=== PATIENT | male | born 1975 | race Caucasian/White ===

== ENCOUNTER 2021-02-22 07:02 | Inpatient (IN) ==
[2021-02-22] MEDS ORDERED: 0.9 % Sodium Chloride 1,000 ML IVC ONE (07:22)
[2021-02-22 07:52] LABS: Hematocrit 30.1 % (37.5-50.1); Hemoglobin 9.5 g/dL (12.9-16.9); Mean Corpuscular HGB Conc 31.6 g/dL (31.6-35.5); Mean Corpuscular Hemoglobin 27.7 pg (28.0-33.3); Mean Corpuscular Volume 87.8 fL (83.0-100.0); Mean Platelet Volume 12.4 fL (9.4-12.4); Nucleated Red Blood Cells 1.2 /100 WBC (0); Platelet Count 121 K/mcL (140-400); Red Blood Count 3.43 M/mcL (4.19-5.50); Red Cell Distribution Width 17.6 % (11.5-14.5); White Blood Count 4.9 K/mcL (4.3-11.1)
[2021-02-22 08:13] LABS: Alanine Aminotransferase 8 Units/L (7-52); Albumin 3.2 g/dL (3.5-5.7); Albumin/Globulin Ratio 1.1 (1.1-2.2); Alkaline Phosphatase 147 Units/L (34-104); Aspartate Amino Transferase 19 Units/L (13-39); BUN/Creatinine Ratio 20 (6-26); Bilirubin,Direct 0.2 mg/dL (0.0-0.2); Bilirubin,Indirect 0.3 mg/dL (0.0-1.0); Bilirubin,Total 0.5 mg/dL (0.3-1.0); Blood Urea Nitrogen 21 mg/dL (6-20); Calcium 8.7 mg/dL (8.6-10.3); Carbon Dioxide 25 mEq/L (23-29); Chloride 103 mEq/L (98-107); Glucose 94 mg/dL (70-105); Lipase 14 Units/L (11-82); Magnesium 1.2 mg/dL (1.6-2.6); Osmolality,Calculated 285 (280-300); Phosphorous 1.8 mg/dL (2.7-4.5); Potassium 3.7 mEq/L (3.5-5.1); Sodium 136 mEq/L (136-145); Total Protein 6.2 g/dL (6.4-8.9); eGFR For African Americans > 60 (> 60); eGFR For Non-African Americans > 60 (> 60)
[2021-02-22 08:16] LABS: INR 1.2; Prothrombin Time 13.4 Seconds (9.4-12.1)
[2021-02-22] MEDS ORDERED: Magnesium Oxide 400 MG TABLET PO ONE (08:18)
[2021-02-22 08:19] LABS: Activated Partial Thrombo Time 25.4 Seconds (26.0-36.0)
[2021-02-22 08:21] LABS: Troponin I < 0.03 ng/mL (< 0.04)
[2021-02-22] MEDS ORDERED: Piperacillin/Tazobactam 3.375 GM in 0.9 % Sodium Chloride Mini Bag 100 ML IVPB ONE (09:45)
[2021-02-22 09:46] LABS: Lymphocytes # 0.9 K/mcL (0.6-4.6); Monocytes # 0.3 K/mcL (0.0-1.3); Neutrophils # 3.4 K/mcL (1.6-8.9); Toxic Granulation Present (Not Present); Toxic Vacuolation Present (Not Present)
[2021-02-22 09:47] LABS: Anisocytosis 1+ (Not Present); Platelet Estimate Slight Decrease (Normal)
[2021-02-22] MEDS ORDERED: Ringers Solution, Lactated 1,000 ML IVC ONE (10:05)
[2021-02-22] MEDS ORDERED: Ondansetron 4 MG/2 ML VIAL IVP PRN (10:23)
[2021-02-22] MEDS ORDERED: Naloxone 0.4 MG/ML INJ IVP PRN (10:23)
[2021-02-22] MEDS ORDERED: Acetaminophen 325 MG TABLET PO PRN (10:23)
[2021-02-22] MEDS ORDERED: Potassium Phosphate 44 MEQ in 0.9 % Sodium Chloride 250 ML IVPB ONE (10:25)
[2021-02-22 13:30] LABS: Bacteria,Urine Few per hpf (None-Few); Bilirubin,Urine Negative (Negative); Blood,Urine Negative (Negative); Clarity,Urine Turbid (Clear); Color,Urine Yellow (Yellow); Glucose,Urine (UA) Normal (Normal); Hyaline Casts,Urine Few per lpf (None Seen); Ketones,Urine Negative (Negative); Leukocyte Esterase,Urine Negative (Negative); Mucus,Urine Few per lpf (None-Few); Nitrite,Urine Negative (Negative); Protein,Urine Negative (Neg-Trace); RBC,Urine 0-3 per hpf (0-3); Specific Gravity,Urine 1.012 (1.010-1.025); Squamous Epithelial Cell,Urine Few per hpf (None-Few); Urobilinogen,Urine Normal (Normal)
[2021-02-22] MEDS ORDERED: *HR* OxyCODONE/APAP 7.5/325 TABLET PO PRN (14:09)
[2021-02-22] MEDS: Piperacillin/Tazobactam 3.375 GM in 0.9 % Sodium Chloride Mini Bag 100 ML IVPB SCH (16:26)
[2021-02-22 16:51] LABS: Acinetobacter baumannii by PCR Not Detected (Not Detect); Candida albicans by PCR Not Detected (Not Detect); Candida glabrata by PCR Not Detected (Not Detect); Candida krusei by PCR Not Detected (Not Detect); Candida parapsilosis by PCR Not Detected (Not Detect); Candida tropicalis by PCR Not Detected (Not Detect); Enterobacter cloacae Cmplx PCR Not Detected (Not Detect); Enterococcus by PCR Not Detected (Not Detect); Escherichia coli by PCR Not Detected (Not Detect); Klebsiella oxytoca by PCR Not Detected (Not Detect); Klebsiella pneumoniae by PCR DETECTED (Not Detect); Proteus by PCR Not Detected (Not Detect); Pseudomonas aeruginosa by PCR Not Detected (Not Detect); Serratia marcescens by PCR Not Detected (Not Detect); Staphylococcus aureus by PCR Not Detected (Not Detect); Staphylococcus by PCR Not Detected (Not Detect); Streptococcus agalactiae(B)PCR Not Detected (Not Detect); Streptococcus by PCR Not Detected (Not Detect); Streptococcus pneumoniae PCR Not Detected (Not Detect); Streptococcus pyogenes (A) PCR Not Detected (Not Detect)
[2021-02-22] MEDS ORDERED: Bisacodyl 10 MG RECTAL SUPPOSITORY RC PRN (17:37)
[2021-02-22] MEDS ORDERED: traZODone 50 MG TABLET PO PRN (17:37)
[2021-02-22] MEDS ORDERED: *HR* HYDROmorphone 4 MG TABLET PO PRN (17:37)
[2021-02-22] MEDS ORDERED: cefTRIAXone 1,000 MG in 0.9 % Sodium Chloride Mini Bag 100 ML IVPB SCH (17:39)
[2021-02-22] MEDS: Gabapentin 300 MG CAPSULE PO SCH (18:31)
[2021-02-22] MEDS: tiZANidine 4 MG TABLET PO SCH (18:31)
[2021-02-22] MEDS: Vancomycin 1,250 MG/262.5 ML IV.SOLN IVPB SCH ×2 (18:32→20:30)
[2021-02-22 19:54] LABS: Amphetamine Screen,Urine Negative ng/mL (Cutoff=1000); Barbiturate Screen,Urine Negative ng/mL (Cutoff=200); Benzodiazepines Screen,Urine Positive ng/mL (Cutoff=200); Cannabinoid Screen,Urine Negative ng/mL (Cutoff = 50); Cocaine Screen,Urine Negative ng/mL (Cutoff= 300); Opiate Screen,Urine Positive ng/mL (Cutoff=300); Phencyclidine Screen,Urine Negative ng/mL (Cutoff=25)
[2021-02-22] MEDS ORDERED: cefTRIAXone 1,000 MG in Water for inj. (sterile) 10 ML IVP SCH (20:00)
[2021-02-22] MEDS: Sennosides/Docusate Sodium TABLET PO SCH (20:21)
[2021-02-23] MEDS: Piperacillin/Tazobactam 3.375 GM in 0.9 % Sodium Chloride Mini Bag 100 ML IVPB SCH ×3 (00:10→15:56)
[2021-02-23] MEDS: tiZANidine 4 MG TABLET PO SCH ×5 (00:11→23:16)
[2021-02-23] MEDS: Gabapentin 300 MG CAPSULE PO SCH ×3 (02:51→17:28)
[2021-02-23 06:42] LABS: BUN/Creatinine Ratio 22 (6-26); Blood Urea Nitrogen 14 mg/dL (6-20); Calcium 8.6 mg/dL (8.6-10.3); Carbon Dioxide 28 mEq/L (23-29); Chloride 109 mEq/L (98-107); Glucose 109 mg/dL (70-105); Magnesium 1.9 mg/dL (1.6-2.6); Osmolality,Calculated 297 (280-300); Potassium 4.1 mEq/L (3.5-5.1); Sodium 143 mEq/L (136-145); eGFR For African Americans > 60 (> 60); eGFR For Non-African Americans > 60 (> 60)
[2021-02-23 06:55] LABS: Basophils % 0.4 %; Eosinophils # 0.1 K/mcL (0.0-0.6); Eosinophils % 1.5 %; Hematocrit 27.9 % (37.5-50.1); Hemoglobin 8.6 g/dL (12.9-16.9); Immature Granulocytes % 2.1 % (0-4); Lymphocytes # 1.4 K/mcL (0.6-4.6); Lymphocytes % 20.6 %; Mean Corpuscular HGB Conc 30.8 g/dL (31.6-35.5); Mean Corpuscular Hemoglobin 27.4 pg (28.0-33.3); Mean Corpuscular Volume 88.9 fL (83.0-100.0); Mean Platelet Volume 12.8 fL (9.4-12.4); Monocytes # 0.9 K/mcL (0.0-1.3); Monocytes % 13.1 %; Neutrophils # 4.2 K/mcL (1.6-8.9); Platelet Count 127 K/mcL (140-400); Red Blood Count 3.14 M/mcL (4.19-5.50); Segmented Neutrophils % 62.3 %; White Blood Count 6.8 K/mcL (4.3-11.1)
[2021-02-23 07:13] LABS: % Iron Saturation 11 % (20-55); Iron 35 mcg/dL (65-175); Transferrin 223 mg/dL (203-362)
[2021-02-23 07:28] LABS: Ferritin 125 ng/mL (20-250)
[2021-02-23 07:34] LABS: Folate 13.2 ng/mL (3.0-16.0)
[2021-02-23] MEDS: Vancomycin 1,250 MG/262.5 ML IV.SOLN IVPB SCH (08:17)
[2021-02-23] MEDS: Sennosides/Docusate Sodium TABLET PO SCH ×2 (08:18→21:43)
[2021-02-23] MEDS: Nicotine 21 MG PATCH.TD24 TD SCH (08:19)
[2021-02-23] MEDS: polyethylene glycoL 3350 17 GM POWD.PACK PO SCH (08:20)
[2021-02-23 16:02] LABS: Acinetobacter baumannii by PCR Not Detected (Not Detect); Candida albicans by PCR Not Detected (Not Detect); Candida glabrata by PCR Not Detected (Not Detect); Candida krusei by PCR Not Detected (Not Detect); Candida parapsilosis by PCR Not Detected (Not Detect); Candida tropicalis by PCR Not Detected (Not Detect); Enterobacter cloacae Cmplx PCR Not Detected (Not Detect); Enterobacteriaceae by PCR Not Detected (Not Detect); Enterococcus by PCR Not Detected (Not Detect); Escherichia coli by PCR Not Detected (Not Detect); Klebsiella oxytoca by PCR Not Detected (Not Detect); Klebsiella pneumoniae by PCR Not Detected (Not Detect); Proteus by PCR Not Detected (Not Detect); Pseudomonas aeruginosa by PCR Not Detected (Not Detect); Serratia marcescens by PCR Not Detected (Not Detect); Staphylococcus aureus by PCR Not Detected (Not Detect); Staphylococcus by PCR Not Detected (Not Detect); Streptococcus agalactiae(B)PCR Not Detected (Not Detect); Streptococcus by PCR Not Detected (Not Detect); Streptococcus pneumoniae PCR Not Detected (Not Detect); Streptococcus pyogenes (A) PCR Not Detected (Not Detect)
[2021-02-23] MEDS: *HR* HYDROmorphone 2 MG TABLET PO PRN ×2 (17:27→21:44)
[2021-02-23] MEDS: diazePAM 10 MG TABLET PO PRN (23:16)
[2021-02-24] MEDS: Gabapentin 300 MG CAPSULE PO SCH ×3 (02:09→16:49)
[2021-02-24] MEDS: *HR* HYDROmorphone 2 MG TABLET PO PRN ×5 (02:09→21:33)
[2021-02-24] MEDS: Piperacillin/Tazobactam 3.375 GM in 0.9 % Sodium Chloride Mini Bag 100 ML IVPB SCH ×3 (02:09→17:09)
[2021-02-24] MEDS: diazePAM 10 MG TABLET PO PRN ×3 (04:32→19:03)
[2021-02-24] MEDS: tiZANidine 4 MG TABLET PO SCH ×3 (04:32→16:50)
[2021-02-24 06:14] LABS: Hematocrit 29.8 % (37.5-50.1); Mean Corpuscular HGB Conc 30.2 g/dL (31.6-35.5); Mean Corpuscular Hemoglobin 26.8 pg (28.0-33.3); Mean Corpuscular Volume 88.7 fL (83.0-100.0); Mean Platelet Volume 11.9 fL (9.4-12.4); Platelet Count 199 K/mcL (140-400); Red Blood Count 3.36 M/mcL (4.19-5.50); Red Cell Distribution Width 18.4 % (11.5-14.5); White Blood Count 7.8 K/mcL (4.3-11.1)
[2021-02-24 06:38] LABS: BUN/Creatinine Ratio 15 (6-26); Blood Urea Nitrogen 11 mg/dL (6-20); Calcium 8.8 mg/dL (8.6-10.3); Carbon Dioxide 25 mEq/L (23-29); Chloride 109 mEq/L (98-107); Glucose 139 mg/dL (70-105); Magnesium 1.8 mg/dL (1.6-2.6); Osmolality,Calculated 294 (280-300); Potassium 4.2 mEq/L (3.5-5.1); Sodium 141 mEq/L (136-145); eGFR For African Americans > 60 (> 60); eGFR For Non-African Americans > 60 (> 60)
[2021-02-24] MEDS: Sennosides/Docusate Sodium TABLET PO SCH ×2 (09:11→21:33)
[2021-02-24] MEDS: polyethylene glycoL 3350 17 GM POWD.PACK PO SCH (09:12)
[2021-02-24] MEDS: Nicotine 21 MG PATCH.TD24 TD SCH (09:12)
[2021-02-24] MEDS: Ertapenem 1,000 MG in 0.9 % Sodium Chloride Mini Bag 100 ML IVPB SCH (17:09)
[2021-02-25] MEDS: Gabapentin 300 MG CAPSULE PO SCH ×3 (01:07→17:23)
[2021-02-25] MEDS: tiZANidine 4 MG TABLET PO SCH ×4 (01:07→17:23)
[2021-02-25] MEDS: diazePAM 10 MG TABLET PO PRN ×4 (01:07→19:27)
[2021-02-25] MEDS: *HR* HYDROmorphone 2 MG TABLET PO PRN ×5 (04:06→21:29)
[2021-02-25] MEDS: polyethylene glycoL 3350 17 GM POWD.PACK PO SCH (08:26)
[2021-02-25] MEDS: Ertapenem 1,000 MG in 0.9 % Sodium Chloride Mini Bag 100 ML IVPB SCH (08:32)
[2021-02-25] MEDS: Nicotine 21 MG PATCH.TD24 TD SCH (08:33)
[2021-02-25] MEDS: Sennosides/Docusate Sodium TABLET PO SCH ×2 (08:33→21:29)
[2021-02-25 11:50] LABS: Hematocrit 31.8 % (37.5-50.1); Hemoglobin 9.8 g/dL (12.9-16.9); Mean Corpuscular HGB Conc 30.8 g/dL (31.6-35.5); Mean Corpuscular Hemoglobin 27.4 pg (28.0-33.3); Mean Corpuscular Volume 88.8 fL (83.0-100.0); Mean Platelet Volume 11.7 fL (9.4-12.4); Platelet Count 225 K/mcL (140-400); Red Blood Count 3.58 M/mcL (4.19-5.50); White Blood Count 5.8 K/mcL (4.3-11.1)
[2021-02-25] MEDS ORDERED: *HR* Enoxaparin 40 MG/0.4 ML SYRINGE SQ ONE (12:08)
[2021-02-25 12:11] LABS: BUN/Creatinine Ratio 15 (6-26); Blood Urea Nitrogen 11 mg/dL (6-20); Calcium 8.9 mg/dL (8.6-10.3); Carbon Dioxide 26 mEq/L (23-29); Chloride 107 mEq/L (98-107); Glucose 83 mg/dL (70-105); Magnesium 1.9 mg/dL (1.6-2.6); Osmolality,Calculated 289 (280-300); Sodium 140 mEq/L (136-145); eGFR For African Americans > 60 (> 60); eGFR For Non-African Americans > 60 (> 60)
[2021-02-26] MEDS: *HR* HYDROmorphone 2 MG TABLET PO PRN ×5 (01:51→20:40)
[2021-02-26] MEDS: Gabapentin 300 MG CAPSULE PO SCH ×3 (01:51→17:39)
[2021-02-26] MEDS: tiZANidine 4 MG TABLET PO SCH ×4 (01:53→17:39)
[2021-02-26] MEDS: diazePAM 10 MG TABLET PO PRN ×3 (02:47→17:43)
[2021-02-26 04:27] LABS: Hematocrit 31.1 % (37.5-50.1); Hemoglobin 9.2 g/dL (12.9-16.9); Mean Corpuscular HGB Conc 29.6 g/dL (31.6-35.5); Mean Corpuscular Hemoglobin 27.2 pg (28.0-33.3); Mean Platelet Volume 11.5 fL (9.4-12.4); Platelet Count 251 K/mcL (140-400); Red Blood Count 3.38 M/mcL (4.19-5.50); Red Cell Distribution Width 17.8 % (11.5-14.5); White Blood Count 7.6 K/mcL (4.3-11.1)
[2021-02-26 04:47] LABS: BUN/Creatinine Ratio 27 (6-26); Blood Urea Nitrogen 21 mg/dL (6-20); Calcium 8.7 mg/dL (8.6-10.3); Carbon Dioxide 26 mEq/L (23-29); Chloride 106 mEq/L (98-107); Glucose 135 mg/dL (70-105); Magnesium 1.8 mg/dL (1.6-2.6); Osmolality,Calculated 289 (280-300); Sodium 137 mEq/L (136-145); eGFR For African Americans > 60 (> 60); eGFR For Non-African Americans > 60 (> 60)
[2021-02-26] MEDS: *HR* Enoxaparin 40 MG/0.4 ML SYRINGE SQ SCH (06:43)
[2021-02-26] MEDS: Ertapenem 1,000 MG in 0.9 % Sodium Chloride Mini Bag 100 ML IVPB SCH (08:51)
[2021-02-26] MEDS: Nicotine 21 MG PATCH.TD24 TD SCH (08:52)
[2021-02-26] MEDS: Sennosides/Docusate Sodium TABLET PO SCH ×2 (08:55→20:40)
[2021-02-26] MEDS: polyethylene glycoL 3350 17 GM POWD.PACK PO SCH (08:55)
[2021-02-27] MEDS: Gabapentin 300 MG CAPSULE PO SCH ×3 (00:57→16:43)
[2021-02-27] MEDS: tiZANidine 4 MG TABLET PO SCH ×5 (00:57→23:51)
[2021-02-27] MEDS: diazePAM 10 MG TABLET PO PRN ×4 (00:57→21:34)
[2021-02-27] MEDS: *HR* HYDROmorphone 2 MG TABLET PO PRN ×5 (02:06→20:44)
[2021-02-27] MEDS: *HR* Enoxaparin 40 MG/0.4 ML SYRINGE SQ SCH (05:09)
[2021-02-27] MEDS: Sennosides/Docusate Sodium TABLET PO SCH ×2 (08:36→20:44)
[2021-02-27] MEDS: Nicotine 21 MG PATCH.TD24 TD SCH (08:36)
[2021-02-27] MEDS: Ertapenem 1,000 MG in 0.9 % Sodium Chloride Mini Bag 100 ML IVPB SCH (08:37)
[2021-02-27] MEDS: polyethylene glycoL 3350 17 GM POWD.PACK PO SCH (08:37)
[2021-02-27] MEDS: Micafungin 100 MG in 0.9 % Sodium Chloride Mini Bag 100 ML IVPB SCH (14:50)
[2021-02-28] MEDS: *HR* HYDROmorphone 2 MG TABLET PO PRN ×6 (00:57→22:10)
[2021-02-28] MEDS: Gabapentin 300 MG CAPSULE PO SCH ×3 (00:57→17:35)
[2021-02-28 03:38] LABS: Hematocrit 34.6 % (37.5-50.1); Hemoglobin 10.7 g/dL (12.9-16.9); Mean Corpuscular HGB Conc 30.9 g/dL (31.6-35.5); Mean Corpuscular Hemoglobin 28.1 pg (28.0-33.3); Mean Corpuscular Volume 90.8 fL (83.0-100.0); Mean Platelet Volume 12.8 fL (9.4-12.4); Platelet Count 130 K/mcL (140-400); Red Blood Count 3.81 M/mcL (4.19-5.50); Red Cell Distribution Width 17.8 % (11.5-14.5)
[2021-02-28] MEDS: diazePAM 10 MG TABLET PO PRN ×4 (03:38→22:12)
[2021-02-28 03:57] LABS: BUN/Creatinine Ratio 35 (6-26); Blood Urea Nitrogen 23 mg/dL (6-20); Calcium 9.1 mg/dL (8.6-10.3); Carbon Dioxide 27 mEq/L (23-29); Chloride 103 mEq/L (98-107); Glucose 100 mg/dL (70-105); Osmolality,Calculated 282 (280-300); Potassium 4.3 mEq/L (3.5-5.1); Sodium 134 mEq/L (136-145); eGFR For African Americans > 60 (> 60); eGFR For Non-African Americans > 60 (> 60)
[2021-02-28] MEDS: *HR* Enoxaparin 40 MG/0.4 ML SYRINGE SQ SCH (05:49)
[2021-02-28] MEDS: tiZANidine 4 MG TABLET PO SCH ×3 (05:49→17:32)
[2021-02-28] MEDS: Sennosides/Docusate Sodium TABLET PO SCH ×2 (09:21→19:31)
[2021-02-28] MEDS: Nicotine 21 MG PATCH.TD24 TD SCH (09:22)
[2021-02-28] MEDS: polyethylene glycoL 3350 17 GM POWD.PACK PO SCH (09:22)
[2021-02-28] MEDS: Ertapenem 1,000 MG in 0.9 % Sodium Chloride Mini Bag 100 ML IVPB SCH (09:23)
[2021-02-28] MEDS: Micafungin 100 MG in 0.9 % Sodium Chloride Mini Bag 100 ML IVPB SCH (09:27)
[2021-02-28] MEDS: hydrOXYzine pamoate 25 MG CAPSULE PO PRN (20:23)
[2021-03-01] MEDS: tiZANidine 4 MG TABLET PO SCH ×4 (00:02→17:51)
[2021-03-01] MEDS: *HR* HYDROmorphone 2 MG TABLET PO PRN ×5 (02:18→19:49)
[2021-03-01] MEDS: Gabapentin 300 MG CAPSULE PO SCH ×3 (02:18→17:51)
[2021-03-01] MEDS: *HR* Enoxaparin 40 MG/0.4 ML SYRINGE SQ SCH (06:07)
[2021-03-01] MEDS: diazePAM 10 MG TABLET PO PRN ×3 (06:55→19:50)
[2021-03-01 07:52] LABS: Hematocrit 35.5 % (37.5-50.1); Mean Corpuscular Hemoglobin 27.4 pg (28.0-33.3); Mean Corpuscular Volume 88.5 fL (83.0-100.0); Mean Platelet Volume 11.8 fL (9.4-12.4); Platelet Count 219 K/mcL (140-400); Red Blood Count 4.01 M/mcL (4.19-5.50); Red Cell Distribution Width 17.8 % (11.5-14.5); White Blood Count 4.4 K/mcL (4.3-11.1)
[2021-03-01 08:09] LABS: BUN/Creatinine Ratio 33 (6-26); Blood Urea Nitrogen 23 mg/dL (6-20); Carbon Dioxide 25 mEq/L (23-29); Chloride 104 mEq/L (98-107); Glucose 97 mg/dL (70-105); Osmolality,Calculated 286 (280-300); Sodium 136 mEq/L (136-145); eGFR For African Americans > 60 (> 60); eGFR For Non-African Americans > 60 (> 60)
[2021-03-01] MEDS: hydrOXYzine pamoate 25 MG CAPSULE PO PRN (09:40)
[2021-03-01] MEDS: Sennosides/Docusate Sodium TABLET PO SCH ×2 (09:40→19:49)
[2021-03-01] MEDS: Nicotine 21 MG PATCH.TD24 TD SCH (09:40)
[2021-03-01] MEDS: Ertapenem 1,000 MG in 0.9 % Sodium Chloride Mini Bag 100 ML IVPB SCH (09:41)
[2021-03-01] MEDS: Micafungin 100 MG in 0.9 % Sodium Chloride Mini Bag 100 ML IVPB SCH (09:41)
[2021-03-01] MEDS: polyethylene glycoL 3350 17 GM POWD.PACK PO SCH (09:42)
[2021-03-01 11:31] LABS: Adenovirus Not Detected (Not Detect); Bordetella Pertussis Not Detected (Not Detect); Chlamydophila pneumoniae Not Detected (Not Detect); Coronavirus 229E Not Detected (Not Detect); Coronavirus HKU1 Not Detected (Not Detect); Coronavirus NL63 Not Detected (Not Detect); Coronavirus OC43 Not Detected (Not Detect); Human Metapneumovirus Not Detected (Not Detect); Human Rhinovirus/Enterovirus Not Detected (Not Detect); Influenza A Subtype 2009 H1 Not Detected (Not Detect); Influenza B Not Detected (Not Detect); Mycoplasma pneumoniae Not Detected (Not Detect); Parainfluenza Virus 1 Not Detected (Not Detect); Parainfluenza Virus 2 Not Detected (Not Detect); Parainfluenza Virus 3 Not Detected (Not Detect); Parainfluenza Virus 4 Not Detected (Not Detect); Respiratory Syncytial Virus Not Detected (Not Detect); SARS-CoV-2 Not Detected (Not Detect)
[2021-03-01 14:51] VITALS: TEMP 97.9
[2021-03-01 19:33] VITALS: BP 119/76; PULSE 90; O2SAT 99
== END 2021-03-01 20:25 | DRG 721 ==
LOC: SUATTDRO → EMEROOARM 07:02 → CDU 07:02 → SUATTDRO 10:35 → CDU 12:11 → SUATTDRO 02-23 17:21 → 3NENU 02-24 18:23
PROVIDERS: ADMIT Pharmacist; ATTEND Student in an Organized Health Care Education/Training Program

== ENCOUNTER 2021-03-15 14:25 | Inpatient (IN) ==
[2021-03-15] MEDS ORDERED: Isovue-370 500 ML BOTTLE IVP ONE ×2 (15:18→21:05)
[2021-03-15] MEDS ORDERED: 0.9 % Sodium Chloride 1,000 ML IVC ONE (15:55)
[2021-03-15 16:10] LABS: Basophils % 0.3 %; Eosinophils % 0.3 %; Hematocrit 40.1 % (37.5-50.1); Hemoglobin 13.1 g/dL (12.9-16.9); Immature Granulocytes % 0.4 % (0-4); Lymphocytes # 1.3 K/mcL (0.6-4.6); Lymphocytes % 14.6 %; Mean Corpuscular HGB Conc 32.7 g/dL (31.6-35.5); Mean Corpuscular Hemoglobin 28.4 pg (28.0-33.3); Mean Platelet Volume 10.9 fL (9.4-12.4); Monocytes # 1.1 K/mcL (0.0-1.3); Monocytes % 11.7 %; Neutrophils # 6.5 K/mcL (1.6-8.9); Platelet Count 211 K/mcL (140-400); Red Blood Count 4.61 M/mcL (4.19-5.50); Red Cell Distribution Width 16.7 % (11.5-14.5); Segmented Neutrophils % 72.7 %
[2021-03-15 16:33] LABS: BUN/Creatinine Ratio 20 (6-26); Blood Urea Nitrogen 16 mg/dL (6-20); Carbon Dioxide 31 mEq/L (23-29); Chloride 95 mEq/L (98-107); Glucose 114 mg/dL (70-105); Osmolality,Calculated 278 (280-300); Potassium 4.6 mEq/L (3.5-5.1); Sodium 133 mEq/L (136-145); eGFR For African Americans > 60 (> 60); eGFR For Non-African Americans > 60 (> 60)
[2021-03-15] MEDS ORDERED: *HR* FentaNYL (PF) 100 MCG/2 ML VIAL IVP ONE ×2 (19:00→22:16)
[2021-03-15 20:02] LABS: C-Reactive Protein > 300 mg/L (Less than 10)
[2021-03-15] MEDS ORDERED: 0.9 % Sodium Chloride 1,000 ML IV ONE (21:08)
[2021-03-15 21:44] LABS: INR 1.3; Prothrombin Time 14.8 Seconds (9.4-12.1)
[2021-03-15 21:47] LABS: Activated Partial Thrombo Time 28.5 Seconds (26.0-36.0)
[2021-03-15] MEDS ORDERED: Vancomycin 1,500 MG/265 ML IV.SOLN IVPB ONE (23:00)
[2021-03-16] MEDS ORDERED: *HR* HYDROcodone/Acet 5/325 mg TABLET PO PRN (00:53)
[2021-03-16] MEDS ORDERED: *HR* OxyCODONE Immed Rel 5 MG TABLET PO PRN (00:53)
[2021-03-16] MEDS ORDERED: Ondansetron ODT 4 MG TAB.RAPDIS SL PRN (00:53)
[2021-03-16] MEDS ORDERED: Naloxone 0.4 MG/ML INJ IVP PRN (00:53)
[2021-03-16] MEDS ORDERED: Ertapenem 1,000 MG in 0.9 % Sodium Chloride Mini Bag 100 ML IVPB SCH (01:55)
[2021-03-16] MEDS ORDERED: *HR* HYDROmorphone 2 MG TABLET PO PRN ×2 (01:58→02:00)
[2021-03-16] MEDS ORDERED: *HR* Heparin 5,000 UNIT/ML VIAL IVP PRN (02:40)
[2021-03-16] MEDS ORDERED: *HR* Heparin 5,000 UNIT/ML VIAL IVP ONE (02:40)
[2021-03-16] MEDS: *HR* OxyCODONE Immed Rel 5 MG TABLET PO PRN ×2 (03:26→13:14)
[2021-03-16] MEDS: Melatonin 3 MG TABLET PO PRN ×2 (03:28→22:48)
[2021-03-16] MEDS: Heparin 25,000UNIT/250ML 1/2NS 25,000 UNIT/250 ML IV.SOLN IVC SCH (05:09)
[2021-03-16 07:18] LABS: INR 1.3; Prothrombin Time 14.5 Seconds (9.4-12.1)
[2021-03-16 07:20] LABS: Heparin anti-factor XA UFH 0.04 IU/mL (0.30-0.70)
[2021-03-16] MEDS: *HR* HYDROmorphone 2 MG TABLET PO PRN ×3 (08:15→22:48)
[2021-03-16 10:20] LABS: Basophils % 0.2 %; Eosinophils % 0.5 %; Hematocrit 32.1 % (37.5-50.1); Immature Granulocytes % 0.7 % (0-4); Lymphocytes # 1.1 K/mcL (0.6-4.6); Mean Corpuscular HGB Conc 31.8 g/dL (31.6-35.5); Mean Corpuscular Hemoglobin 27.1 pg (28.0-33.3); Mean Corpuscular Volume 85.4 fL (83.0-100.0); Mean Platelet Volume 11.8 fL (9.4-12.4); Monocytes # 0.7 K/mcL (0.0-1.3); Monocytes % 8.6 %; Neutrophils # 6.6 K/mcL (1.6-8.9); Platelet Count 219 K/mcL (140-400); Red Blood Count 3.76 M/mcL (4.19-5.50); Red Cell Distribution Width 16.9 % (11.5-14.5); White Blood Count 8.6 K/mcL (4.3-11.1)
[2021-03-16 10:36] LABS: Hemoglobin 10.2 g/dL (12.9-16.9)
[2021-03-16 10:38] LABS: BUN/Creatinine Ratio 37 (6-26); Blood Urea Nitrogen 19 mg/dL (6-20); Calcium 8.2 mg/dL (8.6-10.3); Carbon Dioxide 25 mEq/L (23-29); Chloride 101 mEq/L (98-107); Glucose 111 mg/dL (70-105); Osmolality,Calculated 277 (280-300); Potassium 4.2 mEq/L (3.5-5.1); Sodium 132 mEq/L (136-145); eGFR For African Americans > 60 (> 60); eGFR For Non-African Americans > 60 (> 60)
[2021-03-16 12:47] LABS: Hematocrit 34.1 % (37.5-50.1); Hemoglobin 10.5 g/dL (12.9-16.9); Mean Corpuscular HGB Conc 30.8 g/dL (31.6-35.5); Mean Corpuscular Hemoglobin 27.2 pg (28.0-33.3); Mean Corpuscular Volume 88.3 fL (83.0-100.0); Mean Platelet Volume 11.6 fL (9.4-12.4); Platelet Count 222 K/mcL (140-400); Red Blood Count 3.86 M/mcL (4.19-5.50)
[2021-03-16] MEDS: Sennosides/Docusate Sodium TABLET PO SCH ×2 (14:44→22:47)
[2021-03-16] MEDS: *HR* Heparin 5,000 UNIT/ML VIAL IVP PRN (15:54)
[2021-03-16] MEDS: ceFAZolin 2,000 MG in 0.9 % Sodium Chloride 100 ML IVPB SCH ×2 (16:41→23:54)
[2021-03-16] MEDS: Nicotine 21 MG PATCH.TD24 TD SCH (17:43)
[2021-03-17 01:08] LABS: Hematocrit 28.6 % (37.5-50.1); Hemoglobin 9.2 g/dL (12.9-16.9); Mean Corpuscular HGB Conc 32.2 g/dL (31.6-35.5); Mean Corpuscular Hemoglobin 27.9 pg (28.0-33.3); Mean Corpuscular Volume 86.7 fL (83.0-100.0); Mean Platelet Volume 11.4 fL (9.4-12.4); Platelet Count 225 K/mcL (140-400); Red Cell Distribution Width 16.8 % (11.5-14.5); White Blood Count 8.2 K/mcL (4.3-11.1)
[2021-03-17 01:26] LABS: BUN/Creatinine Ratio 28 (6-26); Blood Urea Nitrogen 19 mg/dL (6-20); Calcium 8.1 mg/dL (8.6-10.3); Carbon Dioxide 25 mEq/L (23-29); Chloride 99 mEq/L (98-107); Glucose 107 mg/dL (70-105); Osmolality,Calculated 277 (280-300); Potassium 4.5 mEq/L (3.5-5.1); Sodium 132 mEq/L (136-145); eGFR For African Americans > 60 (> 60); eGFR For Non-African Americans > 60 (> 60)
[2021-03-17] MEDS: Heparin 25,000UNIT/250ML 1/2NS 25,000 UNIT/250 ML IV.SOLN IVC SCH (02:44)
[2021-03-17] MEDS: *HR* OxyCODONE Immed Rel 5 MG TABLET PO PRN (02:48)
[2021-03-17 03:24] LABS: Heparin anti-factor XA UFH < 0.04 IU/mL (0.30-0.70)
[2021-03-17 03:50] LABS: Activated Partial Thrombo Time 26.8 Seconds (26.0-36.0)
[2021-03-17] MEDS: *HR* Heparin 5,000 UNIT/ML VIAL IVP PRN (04:00)
[2021-03-17] MEDS: *HR* HYDROmorphone 2 MG TABLET PO PRN ×2 (05:43→13:51)
[2021-03-17] MEDS ORDERED: *HR* Rivaroxaban 15 MG TABLET PO SCH (09:00)
[2021-03-17] MEDS: Nicotine 21 MG PATCH.TD24 TD SCH (10:03)
[2021-03-17] MEDS: Sennosides/Docusate Sodium TABLET PO SCH (10:03)
[2021-03-17 10:24] LABS: Hematocrit 29.8 % (37.5-50.1); Hemoglobin 9.4 g/dL (12.9-16.9)
[2021-03-17] MEDS: ceFAZolin 2,000 MG in 0.9 % Sodium Chloride 100 ML IVPB SCH ×2 (11:04→16:37)
[2021-03-17 12:23] LABS: Influenza A PCR Negative (Negative); Influenza B PCR Negative (Negative); Resp. Syncytial Virus PCR Negative (Negative)
[2021-03-17 12:26] LABS: SARS-CoV-2 by PCR (In House) Negative (Negative)
[2021-03-17 14:44] VITALS: BP 111/70; PULSE 76; TEMP 98.4; O2SAT 93
== END 2021-03-17 19:33 | DRG 721 ==
LOC: EMEROOARM 14:25 → CDU 03-16 06:55 → SUATTDRO 03-16 06:55 → CDU 03-16 07:55 → 3BNU 03-16 22:12
PROVIDERS: ADMIT Student in an Organized Health Care Education/Training Program; ATTEND Student in an Organized Health Care Education/Training Program